=== PATIENT | female | born 1930 | race Hispanic/Latino ===

== ENCOUNTER 2016-09-09 13:11 | Emergency (ER) | payer MEDICARE ==
[2016-09-09 13:20] VITALS: BP 188/70
--- NOTE | 2016-09-09 13:45 | ERNOTE ---
Medical Problem HPI - Narrative Date of Service: 09/09/16 - General Chief Complaint: Laceration Time Seen by Provider: 09/09/16 13:28 Source: patient Exam Limitations: no limitations - Immun/Allergies/Home Medications Immunizations: IMMUNIZATION HX Immunizations Up to Date Yes History of Influenza Vaccine Yes Hx Pneumococcal Vaccination Yes Allergies/Adverse Reactions: Allergies Penicillins Adverse Reaction (Intermediate, Verified 09/09/16 13:20) Other "in a black tunnel, could here people talking around her" Home Medications: HOME MEDICATIONS Levothyroxine Sodium [Levothroid] 25 mcg PO DAILY 05/27/12 [Last Taken 03/12/13] Insulin NPH Hum/Reg Insulin Hm [Humulin 70-30] 11 unit SC DAILY PRN 05/05/15 [ Last Taken Unknown] Losartan Potassium [Cozaar] 100 mg PO DAILY 05/05/15 [Last Taken Unknown] - Pain Score Pain Score #1 Pain Score: 0 - History of Present History Narrative: patient is a 86 year old female who presents to the ED with and two granddaughters. Patient states she was opening a canned jar of salsa and cut her left thumb on the lucila lid. 1.5 cm superficial laceration over left thumb without bleeding. Denies pain or numbness to thumb. Patient states her last Tetanus was 2 years ago Date (Duration): 09/09/16 Timing: other - denies pain, no bleeding Severity: mild Modifying Factors - (Improves): Present: other - denies pain or bleeding Review of Systems - Review of Systems Constitutional: Present: no symptoms reported EYE: Present: no symptoms reported ENT: Present: no symptoms reported Respiratory: Present: no symptoms reported Cardiology: Present: no symptoms reported Gastrointestinal/Abdominal: Present: no symptoms reported Genitourinary: Present: no symptoms reported Musculoskeletal: Present: no symptoms reported Skin: Present: other - superficial laceration to left thumb Neurological: Present: no symptoms reported Endocrine: Present: no symptoms reported Hematologic/Lymphatic: Present: no symptoms reported Psych: Present: no symptoms reported - Patient's Past Medical History Patient History - Medical: Diabetes Type 1, GERD, Hypothyroidism Patient History - Cardiac/Respiratory: Hypertension Patient History - Cancer: No Hx of Cancer Patient History - Surgical Procedures: Appendectomy, Colonoscopy, Hysterectomy, Total Knee Replacement, Other Patient History - Other: None LMP (females 10-50): Menopausal - Family History Mother Family History - Medical: Family History - Cardiac/Respiratory: CVA/Stroke, Hypertension Father Family History - Medical: Family History - Cardiac/Respiratory: Hypertension - Social History Living Situations: home Abuse History: No History of abuse Psych History: No pertinent hx Smoking Status: Never smoker Alcohol Use: none Drug Use: none - Immunizations Immunizations Up to Date: Yes Hx Pneumococcal Vaccination: Yes History of Influenza Vaccine: Yes Physical Exam - Physical Exam General Appearance: Present: wd/wn, alert, no apparent distress Eye Exam: Normal inspection: bilateral Respiratory: Present: no respiratory distress, normal breath sounds, no accessory muscle use, chest nontender, lungs clear Cardiovascular/Chest: Present: regular rate, rhythm, no murmur, normal peripheral pulses Gastrointestinal/Abdominal: Present: normal bowel sounds, nontender, nondistended, soft, no organomegaly Rectal Exam: Present: deferred Back Exam: Present: normal range of motion, no CVA tenderness, no vertebral tenderness Extremity Exam: Present: normal inspection, normal range of motion, no edema Neurological Exam: Present: alert, oriented, normal mood/affect, no motor/ sensory deficits Skin Exam: Present: normal color, warm/dry Lymphatic Exam: Present: no adenopathy ED Progress - Vital Signs Patient's Vital Signs:: I have reviewed the patient's vital signs. Vital Signs: Vital Signs 09/09/16 13:17 Temperature 36.9 C Pulse Rate 65 Respiratory 16 Rate Blood Pressure 188/70 O2 Sat by Pulse 98 Oximetry - Progress/Reassessment Chief Complaint: Laceration Procedures Left 1st Digit Anesthesia: Other - using dermabond, no anesthesia used Length of Repair/Wound (cm): 1.5 Wound's Depth/Shape: superficial Wound Explored: clean Wound Intervention: irrigated w/saline Distal NVT: neuro/vasc intact, no tendon injury Wound Repaired With: Dermabond Complications: Pt agnes procedure well Departure - Departure Clinical Impression: Abrasion Disposition: Home self-care Condition: Good Instructions: Tissue Adhesive Wound Care, Abrasion, [id number] Additional Instructions: Keep left thumb clean and dry. Wash wound twice a day using soap and water. Return if experiencing fever, chills, body aches or purulent drainage from wound. Referrals: Ivet Bay MD [Primary Care Provider] -
--- OUTSIDE RECORDS SUMMARY | 2016-09-09 13:51 | XMS REPORT | Continuity of Care Document ---
:1930 Author Organization [facility] ([facility]) Address [address] [place] [address] Phone [phone] Care Team Providers Name Role Phone Ivet Bay Primary Care Provider [phone] Source Comments This disclosure is being made pursuant to the Care Everywhere program, applicable federal and state laws, and may not contain all informaitonavailable regarding this patient.[facility] ([facility]) Active Allergies and Adverse Reactions Allergen Noted Date Severity Reactions Comments Penicillins 02/09/2012 Tachycardia Current Medications Prescription Sig. Disp. Refills Start Date End Date Status levothyroxine 25 mcg Take 25 mcg by mouth Active tablet every morning before breakfast. brimonidine 0.2 % instill 1 Drop onto Active ophthalmic solution both eyes every 12 hours. HUM INSULIN NPH/REG inject subcutaneously Active INSULIN HM (NOVOLIN 2 times daily. 70/30 SC) aspirin 81 mg EC Take 81 mg by mouth Active tablet daily. solifenacin (VESICARE) Take 10 mg by mouth Active 5 mg tablet daily. Indications: URINARY URGE INCONTINENCE atenolol 25 mg tablet Take 25 mg by mouth Active daily. Indications: HYPERTENSION MULTIVIT-MIN #14/FOLIC Take 1 Tab by mouth Active ACID (MULTIVIT W-MIN daily. #14-FOLIC ACID PO) Docusate Potassium 100 Take 100 mg by mouth 2 Active mg cap times daily as needed. acetaminophen 500 mg Take 1,000 mg by mouth Active tablet 2 times daily as needed. ciprofloxacin 250 mg Take 250 mg by mouth 2 Active tablet times daily. vitamin E 400 unit Take 400 Units by Active capsule mouth daily. vitamin B complex Take 1 Tab by mouth Active tablet daily. ascorbic acid (VITAMIN Take 1,000 mg by mouth Active C) 1,000 mg tablet daily. 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 Diabetes mellitus 02/14/2012 Hypothyroid 02/14/2012 Depression 02/14/2012 Immunizations Name Dates Previously Given Next Due Influenza, unspecified 03/25/2012 Social History Tobacco Use Types Packs/Day Years Used Date Former Smoker Cigarettes 0.25 3 Smokeless Tobacco: Never Used Alcohol Use Drinks/Week oz/Week Comments No Last Filed Vital Signs Vital Sign Reading Time Taken Blood Pressure 191/77 03/19/2013 3:10 PM CDT Pulse 62 03/19/2013 3:10 PM CDT Temperature 36.9 C (98.4 F) 03/19/2013 3:10 PM CDT Respiratory Rate 12 03/19/2013 3:10 PM CDT Height 1.499 m (4' 11") 11/15/2012 1:59 PM CDT Weight 64.411 kg (142 lb) 03/19/2013 3:10 PM CDT Body Mass Index 28.67 03/19/2013 3:10 PM CDT Oxygen Saturation 98% 11/15/2012 1:59 PM CDT Plan of Care Health Maintenance Due Date Last Done Comments Hepatitis B Vaccine (1 of 3 - Primary Series) 1928 Tdap Vaccine 1939 DIABETIC: Cholesterol 1948 Diabetic: Hdl 1948 DIABETIC: Hemoglobin A1C 1946 Diabetic: Ldl 1948 DIABETIC: Microalbumin 1948 DIABETIC: Triglycerides 1948 Td Vaccine 1948 Zoster Vaccine 1988 Pneumococcal Vaccine (1 of 2 - PCV13) 1993 DIABETIC: Foot Exam 04/03/2012 DIABETIC: Retinal Eye Exam 04/03/2012 Influenza Vaccine: Seasonal (#1) 01/24/2016 03/25/2012 Results from Last 3 Months Not on file
== END 2016-09-09 14:02 | disposition home or self-care (01) ==
LOC: ER 13:11
PROC: 0HQGXZZ Repair Left Hand Skin, External Approach (ICD-10-PCS; principal; 2016-09-09)
DX: S61.012A Laceration without foreign body of left thumb without damage to nail, initial encounter (principal); S60.312A Abrasion of left thumb, initial encounter; W26.8XXA Contact with other sharp object(s), not elsewhere classified, initial encounter; E10.9 Type 1 diabetes mellitus without complications; Z79.4 Long term (current) use of insulin; E03.9 Hypothyroidism, unspecified; I10 Essential (primary) hypertension

== ENCOUNTER 2017-05-06 18:45 | Emergency (ER) | payer MEDICARE ==
--- NOTE | 2017-05-06 19:15 | ERNOTE ---
Trauma/Assault HPI - General Stated Complaint: FALL, HEAD LAC Time Seen by Provider: 05/06/17 18:56 Source: patient, family Exam Limitations: no limitations - Immun/Allergies/Home Medications Immunizations: IMMUNIZATION HX Immunizations Up to Date Yes History of Influenza Vaccine Yes Hx Pneumococcal Vaccination Yes Allergies/Adverse Reactions: Allergies Penicillins Adverse Reaction (Intermediate, Verified 09/09/16 13:20) Other "in a black tunnel, could here people talking around her" Home Medications: HOME MEDICATIONS Levothyroxine Sodium [Levothroid] 50 mcg PO DAILY 05/27/12 [Last Taken 03/12/13] Insulin NPH Hum/Reg Insulin Hm [Humulin 70-30] 6 - 8 unit SC DAILY PRN 05/05/15 [Last Taken Unknown] Losartan Potassium [Cozaar] 100 mg PO DAILY 05/05/15 [Last Taken Unknown] Albuterol Sulfate [Proair Hfa] 2 puff IH QID PRN 05/06/17 [Last Taken Unknown] Albuterol Sulfate [Proair Respiclick] 90 mcg IH QID PRN 05/06/17 [Last Taken Unknown] Brimonidine Tartrate [Brimonidine 0.2% Ophthalmic Solution] 1 drop OP TID [Last Taken Unknown] Cholecalciferol (Vitamin D3) [Vitamin D3] 5,000 unit PO DAILY 05/06/17 [Last Taken Unknown] Docusate Sodium [Colace] 100 mg PO DAILY 05/06/17 [Last Taken Unknown] Ferrous Sulfate 325 mg PO DAILY 05/06/17 [Last Taken Unknown] HYDROcodone/ACETAMINOPHEN [Hydrocodon-Acetaminophen 5-325] 1 each PO QID PRN 06/10 [Last Taken Unknown] Olopatadine HCl [Pataday] 2.5 ml OP DAILY 05/06/17 [Last Taken Unknown] - History of Present Illness Narrative: Patient was going down steps at home and missed a step and stumbled down several steps striking her right strong and her forehead just above her left eye. He complains of some low-grade neck pain and has a laceration above her left eyebrow. Location Occurred: Reports: home Pain Location: Reports: head, neck, lower extremity Method of Injury: Reports: other - tripped Severity: moderate Loss of Consciousness: Reports: no loss of consciousness Associated Symptoms - Trauma: Reports: denies symptoms Review of Systems - Review of Systems Constitutional: Present: See HPI, other - 2 cm laceration above the left eyebrow EYE: Present: no symptoms reported ENT: Present: no symptoms reported Respiratory: Present: no symptoms reported Cardiology: Present: no symptoms reported Gastrointestinal/Abdominal: Present: no symptoms reported Genitourinary: Present: no symptoms reported Musculoskeletal: Present: other - hematoma at the proximal right strong Skin: Present: no symptoms reported Neurological: Present: no symptoms reported Endocrine: Present: no symptoms reported Hematologic/Lymphatic: Present: no symptoms reported Psych: Present: no symptoms reported - Patient's Past Medical History Patient History - Medical: Diabetes Type 1, GERD, Hypothyroidism Patient History - Cardiac/Respiratory: Hypertension Patient History - Cancer: No Hx of Cancer Patient History - Surgical Procedures: Appendectomy, Colonoscopy, Hysterectomy, Other, Orthopedic Patient History - Other: None - Family History Mother Family History - Medical: Family History - Cardiac/Respiratory: CVA/Stroke, Hypertension Father Family History - Medical: Family History - Cardiac/Respiratory: Hypertension - Social History Living Situations: home Abuse History: No History of abuse Psych History: No pertinent hx Smoking Status: Never smoker Have you smoked in the past 12 months: No Do you dip or chew tobacco: No Alcohol Use: none Drug Use: none - Immunizations Immunizations Up to Date: Yes Hx Pneumococcal Vaccination: Yes History of Influenza Vaccine: Yes Physical Exam - Physical Exam General Appearance: Present: wd/wn, alert, mild distress Head Exam: Present: other - laceration above the left eyebrow is noted with bleeding Eye Exam: Normal inspection: bilateral, PERRL: bilateral Ears, Nose, Throat: Present: normal ENT inspection, H, normal pharynx Respiratory: Present: no respiratory distress, normal breath sounds, no accessory muscle use, chest nontender, lungs clear Cardiovascular/Chest: Present: regular rate, rhythm, no murmur, normal peripheral pulses Gastrointestinal/Abdominal: Present: normal bowel sounds, nontender, nondistended, soft, no organomegaly Rectal Exam: Present: deferred Back Exam: Present: normal inspection, normal range of motion Extremity Exam: Present: normal range of motion, extremity edema - with tenderness to palpation at the proximal right strong with what appears to be a hematoma Neurological Exam: Present: alert, oriented, normal mood/affect Skin Exam: Present: normal color, warm/dry Lymphatic Exam: Present: no adenopathy ED Progress - Vital Signs Patient's Vital Signs:: I have reviewed the patient's vital signs. Vital Signs: Vital Signs 05/06/17 18:52 Temperature 37.3 C Pulse Rate 96 Respiratory 16 Rate Blood Pressure 241/88 O2 Sat by Pulse 99 Oximetry - X-Ray X-Ray #1 X-Ray: leg Interpretation: Reviewed by me - CT/Ultrasound CT/Ultrasound Narrative: CT of the head and neck were reviewed by me - Progress/Reassessment Chief Complaint: Fall Procedures Face Anesthesia: Lidocaine w/ Epi I & D Prep: betadine prep Length of Repair/Wound (cm): 2 Wound's Depth/Shape: into subcutaneous Wound Explored: other - small pieces of particular matter removed from the wound Wound Intervention: irrigated w/saline Distal NVT: neuro/vasc intact Suture Size/Type: 4-0 Number of Sutures: 5 Layer Closure: Simple Wound Dressing: sterile dressing applied, other - Bacitracin applied Complications: Pt agnes procedure well Plan - Plan Plan: I discussed the head CT with Dr. Lerner and he states the head intracranially is unremarkable he did comment on hematoma above the left eyebrow which is where the laceration was laceration repair was done. The cervical spine showed considerable degenerative changes and the faint possibility of a very minute avulsion fracture of the spinous process of C6. He could not determine whether it was an avulsion fracture or just possibly degenerative changes on the intraspinous ligament. My suggestion is that the sutures stay in early 7 days as that was a fairly deep laceration to the left forehead and to have a better opportunity to heal by staying in additional 2 days. Patient will see her family physician this week for ongoing monitoring. It is unlikely that she is going to have a delayed intracranial bleed but is always a possibility that needs to be considered. She certainly had at least a mild concussion from the fall and will be sent home with reasonable instructions to cover that. I'm reluctant to give anything other than Tylenol for pain as I do not want to mask an evolving intracranial process that could develop. Patient's blood pressure was up while she was in the emergency department so she was given his 0.1 mg of clonidine by mouth to help get her blood pressure down and 650 mg of Tylenol to help with some of the pain. Departure Clinical Impression: Laceration Head contusion Qualifiers: Encounter type: initial encounter Contusion of head detail: unspecified part of head Qualified Code(s): S00.93XA - Contusion of unspecified part of head, initial encounter Hypertension Qualifiers: Hypertension type: essential hypertension Qualified Code(s): I10 - Essential ( primary) hypertension - Departure Disposition: Home self-care Condition: Good Instructions: Concussion, Adult, [id number], Laceration Care, Adult, Easy-to- Read, Hematoma, [id number] Additional Instructions: See Dr. Bay in 2 days Referrals: Ivet Bay MD [Staff Physician] - Critical Care Time - Critical Care Critical Time Spent:: No Total time (mins) Spent:: 0
[2017-05-06] MEDS ORDERED: CLONIDINE HCL 0.1 MG TABLET ONE (20:39)
[2017-05-06] MEDS ORDERED: CLONIDINE HCL 0.1 MG TABLET PO ONE (20:40)
[2017-05-06] MEDS ORDERED: ACETAMINOPHEN 325 MG TABLET PO ONE (20:42)
[2017-05-06] MEDS ORDERED: ACETAMINOPHEN 325 MG TABLET ONE (20:47)
[2017-05-06 21:18] VITALS: BP 184/73
== END 2017-05-06 21:20 | disposition home or self-care (01) ==
LOC: ER 18:45
PROC: 0JQ10ZZ Repair Face Subcutaneous Tissue and Fascia, Open Approach (ICD-10-PCS; principal; 2017-05-06)
DX: S01.122A Laceration with foreign body of left eyelid and periocular area, initial encounter (principal); W10.8XXA Fall (on) (from) other stairs and steps, initial encounter; Z91.81 History of falling; Y92.008 Other place in unspecified non-institutional (private) residence as the place of occurrence of the external cause; S00.93XA Contusion of unspecified part of head, initial encounter; I10 Essential (primary) hypertension; E10.9 Type 1 diabetes mellitus without complications; K21.9 Gastro-esophageal reflux disease without esophagitis; E03.9 Hypothyroidism, unspecified

== ENCOUNTER 2017-05-13 19:32 | Emergency (ER) | payer MEDICARE ==
[2017-05-13 19:51] VITALS: BP 102/59
--- NOTE | 2017-05-13 19:58 | ERNOTE ---
Medical Problem HPI - General Chief Complaint: General Assessment Time Seen by Provider: 05/13/17 19:53 Source: patient, family, RN notes reviewed, old records Exam Limitations: no limitations - Immun/Allergies/Home Medications Immunizations: IMMUNIZATION HX Immunizations Up to Date Yes History of Influenza Vaccine Yes Hx Pneumococcal Vaccination Yes Allergies/Adverse Reactions: Allergies Penicillins Adverse Reaction (Intermediate, Verified 09/09/16 13:20) Other "in a black tunnel, could here people talking around her" Home Medications: HOME MEDICATIONS Levothyroxine Sodium [Levothroid] 50 mcg PO DAILY 05/27/12 [Last Taken 03/12/13] Insulin NPH Hum/Reg Insulin Hm [Humulin 70-30] 6 - 8 unit SC DAILY PRN 05/05/15 [Last Taken Unknown] Losartan Potassium [Cozaar] 100 mg PO DAILY 05/05/15 [Last Taken Unknown] Albuterol Sulfate [Proair Hfa] 2 puff IH QID PRN 05/06/17 [Last Taken Unknown] Albuterol Sulfate [Proair Respiclick] 90 mcg IH QID PRN 05/06/17 [Last Taken Unknown] Brimonidine Tartrate [Brimonidine 0.2% Ophthalmic Solution] 1 drop OP TID [Last Taken Unknown] Cholecalciferol (Vitamin D3) [Vitamin D3] 5,000 unit PO DAILY 05/06/17 [Last Taken Unknown] Docusate Sodium [Colace] 100 mg PO DAILY 05/06/17 [Last Taken Unknown] Ferrous Sulfate 325 mg PO DAILY 05/06/17 [Last Taken Unknown] HYDROcodone/ACETAMINOPHEN [Hydrocodon-Acetaminophen 5-325] 1 each PO QID PRN 06/10 [Last Taken Unknown] Olopatadine HCl [Pataday] 2.5 ml OP DAILY 05/06/17 [Last Taken Unknown] Cephalexin Monohydrate [Keflex] 1,000 mg PO BID #40 cap 05/13/17 [Last Taken Unknown] - History of Present History Narrative: Patient had sutures placed [address] Riddle. Yesterday her wound started to be much more painful and swelled up. Today the pain and swelling were worse. She has a pretty good scab over the laceration, came in earlier today to see if she could get her sutures out. The staff here cleaned up the wound and requested that the patient wait and be seen tomorrow or the next day. However, tonight the pain became too intense for her and she is back, asking to be seen again. The wound is swollen, and mushy, with pus coming out of it. Timing: getting worse Severity: moderate Modifying Factors - (Worsens): Present: movement Review of Systems - Review of Systems Constitutional: Absent: recent illness, fever, chills EYE: Present: other - pain above her left eye at wound site ENT: Absent: ear pain, sore throat Respiratory: Absent: shortness of breath, cough Cardiology: Absent: chest pain Gastrointestinal/Abdominal: Absent: nausea, vomiting, diarrhea, abdominal pain Genitourinary: Present: no symptoms reported Musculoskeletal: Present: no symptoms reported Skin: Present: change in color - erythema around the wound Neurological: Present: no symptoms reported Hematologic/Lymphatic: Present: no symptoms reported Psych: Present: no symptoms reported - Patient's Past Medical History Patient History - Medical: Diabetes Type 1, GERD, Hypothyroidism Patient History - Cardiac/Respiratory: Hypertension Patient History - Cancer: No Hx of Cancer Patient History - Surgical Procedures: Appendectomy, Colonoscopy, Hysterectomy, Other, Orthopedic Patient History - Other: None - Family History Mother Family History - Medical: Family History - Cardiac/Respiratory: CVA/Stroke, Hypertension Father Family History - Medical: Family History - Cardiac/Respiratory: Hypertension - Social History Living Situations: home Abuse History: No History of abuse Psych History: No pertinent hx Smoking Status: Former smoker Alcohol Use: none Drug Use: none - Immunizations Immunizations Up to Date: Yes Hx Pneumococcal Vaccination: Yes History of Influenza Vaccine: Yes Physical Exam - Physical Exam General Appearance: Present: wd/wn, alert, mild distress Head Exam: Present: swelling - above left eye, tenderness - above left eye Eye Exam: EOMI: bilateral, Other: left - left superior and lateral skin outside of the orbit swollen, crusted scab with pustular discharge Ears, Nose, Throat: Present: normal ENT inspection Neck: Present: normal inspection, nontender Respiratory: Present: no respiratory distress, normal breath sounds Cardiovascular/Chest: Present: regular rate, rhythm, no murmur Gastrointestinal/Abdominal: Present: normal bowel sounds, nontender, nondistended, soft Back Exam: Present: normal inspection, normal range of motion Extremity Exam: Present: normal inspection, non-tender, normal range of motion Neurological Exam: Present: alert, oriented, normal mood/affect, no motor/ sensory deficits Skin Exam: Present: normal color, warm/dry ED Progress - Vital Signs Patient's Vital Signs:: I have reviewed the patient's vital signs. Vital Signs: Vital Signs 05/13/17 19:40 Temperature 36.9 C Pulse Rate 82 Respiratory 18 Rate Blood Pressure 102/59 O2 Sat by Pulse 98 Oximetry - Progress/Reassessment Chief Complaint: General Assessment Progress:: Improved Progress Note-Subjective: 05/13/17 20:42 Rocephin 1 gram IM with lidocaine Departure Clinical Impression: Facial cellulitis, Infected laceration of skin, Visit for suture removal - Departure Disposition: Home self-care Condition: Good Instructions: Wound Infection, [id number], Wound Dehiscence Additional Instructions: Keep your wound clean. Apply Bacitracin 3 x daily. Take your antibiotics as prescribed. If you experience worsening pain, redness, discharge or swelling, go immediately to Dr. Bay's office or return here to the Emergency Department. Referrals: Ivet Bay MD [Primary Care Provider] - (See her tomorrow or Sunday to get your wound looked at. ) Prescriptions: Cephalexin Monohydrate [Keflex] 1,000 mg PO BID #40 cap
== END 2017-05-13 20:46 | disposition home or self-care (01) ==
LOC: ER 19:32
DX: Z48.02 Encounter for removal of sutures (principal); T81.4XXD Infection following a procedure, subsequent encounter; L03.211 Cellulitis of face